=== PATIENT | female | born 1940 | race Hispanic/Latino ===

== ENCOUNTER → 2018-03-24 | Outpatient (CLI) | payer MEDICARE | END | disposition home or self-care (01) | LOC: SHCH 14:11 | PROVIDERS: ATTEND Internal Medicine Cardiovascular Disease | DX: G45.9 Transient cerebral ischemic attack, unspecified (principal) | CPT/HCPCS: 93880 ==

== ENCOUNTER 2018-05-01 16:12 | Observation (INO) | payer MEDICARE ==
[~2018-05-01] VITALS: Ht 167.6 cm; Wt 90.7 kg
[2018-05-01 16:41] LABS: BASOPHILS % (AUTO) 0.9 % (0.0-5.0); EOSINOPHILS % (AUTO) 3.3 % (0.0-8.0); LYMPHOCYTES % (AUTO) 29.5 % (21.0-51.0); MEAN CORPUSCULAR HEMOGLOBIN 28.8 pg (27.0-33.0); MEAN CORPUSCULAR HGB CONC 33.1 g/dL (32.0-36.0); MONOCYTES % (AUTO) 9.9 % (3.0-13.0); NEUTROPHILS % (AUTO) 56.4 % (40.0-77.0); NUCLEATED RED BLOOD CELLS 0.1 % (0.0-0.19); PLATELET COUNT (AUTO) 204 K/uL (130-400); RED BLOOD CELL COUNT(AUTO) 4.14 MIL/uL (4.00-5.50); RED CELL DISTRIBUTION WIDTH 14.2 % (11.0-15.5)
[2018-05-01 17:04] LABS: CREATININE 0.8 mg/dL (0.5-1.5)
[2018-05-01 17:08] LABS: ALBUMIN 3.6 g/dL (3.5-5.0); BILIRUBIN,TOTAL 0.3 mg/dL (0.2-1.0)
[2018-05-01 17:17] LABS: CREATINE KINASE, TOTAL 323 U/L (21-232); MYOGLOBIN 112 ng/mL (10-92); TROPONIN I < 0.04 ng/mL (0.00-0.06)
[2018-05-01 18:05] LABS: APPEARANCE,URINE Clear (CLEAR); BILIRUBIN,URINE Negative (NEGATIVE); COLOR,URINE Yellow (YELLOW); GLUCOSE, URINE (UA) Negative (NEGATIVE); KETONES,URINE Negative (NEGATIVE); LEUKOCYTE ESTERASE ,URINE Trace (NEGATIVE); NITRATE,URINE Negative (NEGATIVE); OCCULT BLOOD,URINE Negative (NEGATIVE); PH,URINE 5.5 (5.0-8.0); PROTEIN,URINE Negative (NEGATIVE); UROBILINOGEN,URINE 0.2 mg/dL (0.2-1.0)
[2018-05-01 18:16] LABS: BACTERIA,URINE Rare /HPF (None Seen); RBC,URINE None Seen /HPF (0-1); SQUAMOUS EPITHELIAL CELL,UR None Seen /HPF (0-2); WBC,URINE 0-1 /HPF (0-1)
[2018-05-01] MEDS ORDERED: ACETAMINOPHEN 325 MG TAB PO PRN (18:45)
[2018-05-01] MEDS ORDERED: ONDANSETRON HCL 4 MG/2 ML VIAL IV PRN (18:45)
[2018-05-01] MEDS ORDERED: MORPHINE SULFATE 2 MG/ML 1ML SYG IV PRN (18:45)
[2018-05-01 23:10] VITALS: BP 139/82
[2018-05-01] MEDS: FAMOTIDINE/PF 20 MG/2 ML VIAL IV SCH (23:19)
--- NOTE | 2018-05-01 23:20 | NUR ---
ADMITTED TO ROOM [address] OF [address] Keane FOR C/O OF PALPITATIONS.NO SOB OR CHEST PAIN NOTED.S/L TO RT WRIST PATENT AND INTACT.NO REDNESS,SWELLING OR PAIN NOTED.ROOM AIR.UP TO BATHROOM TO VOID X ONE.INSTRUCTED ON PLAN OF CARE AND RESETTLED FOLLOWING INITIAL ASSESSMENT.V/S STABLE.TELEMETRY APPLIED.N/S
[2018-05-01] MEDS: ENOXAPARIN SODIUM 30 MG/0.3 ML SQ SCH (23:25)
[2018-05-02] MEDS ORDERED: LISI-617 PO (00:32)
[2018-05-02] MEDS ORDERED: WARF7.5T23 PO (00:32)
[2018-05-02] MEDS ORDERED: CALC-190 PO (00:32)
[2018-05-02] MEDS ORDERED: SOTA80TA PO (00:32)
[2018-05-02] MEDS ORDERED: SIMV40TA59 PO (00:32)
[2018-05-02] MEDS ORDERED: AEC81 PO (00:32)
[2018-05-02] MEDS ORDERED: OXYB5TAB10 PO (00:32)
[2018-05-02] MEDS ORDERED: WARF5TAB76 PO (00:32)
[2018-05-02 03:50] VITALS: BP 126/73
[2018-05-02 04:40] LABS: EOSINOPHILS % (AUTO) 5.1 % (0.0-8.0); HEMATOCRIT 34.9 % (36-48); LYMPHOCYTES % (AUTO) 39.6 % (21.0-51.0); MEAN CORPUSCULAR HEMOGLOBIN 28.7 pg (27.0-33.0); MEAN CORPUSCULAR HGB CONC 32.8 g/dL (32.0-36.0); MEAN CORPUSCULAR VOLUME 87.5 fL (79-99); NEUTROPHILS % (AUTO) 42.3 % (40.0-77.0); NUCLEATED RED BLOOD CELLS 0.1 % (0.0-0.19); PLATELET COUNT (AUTO) 176 K/uL (130-400); RED BLOOD CELL COUNT(AUTO) 3.99 MIL/uL (4.00-5.50); RED CELL DISTRIBUTION WIDTH 14.3 % (11.0-15.5); WHITE BLOOD COUNT (AUTO) 3.3 K/uL (4.8-10.8)
[2018-05-02 05:07] LABS: ALBUMIN 3.2 g/dL (3.5-5.0); BILIRUBIN,TOTAL 0.3 mg/dL (0.2-1.0); CREATININE 0.7 mg/dL (0.5-1.5); THYROID STIMULATING HORMONE 5.09 uIU/mL (0.36-3.74); TOTAL PROTEIN, SERUM 6.3 g/dL (6.0-8.3)
[2018-05-02 07:56] VITALS: BP 140/77
--- NOTE | 2018-05-02 08:23 | NUR ---
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 CARLOS CAPPS REGARDING CONSULT. AWAITING CALLBACK.
[2018-05-02] MEDS: FAMOTIDINE/PF 20 MG/2 ML VIAL IV SCH (09:47)
[2018-05-02] MEDS: ENOXAPARIN SODIUM 30 MG/0.3 ML SQ SCH (09:47)
[2018-05-02 11:29] VITALS: BP 142/87
--- NOTE | 2018-05-02 11:30 | NUR ---
REPAGED DR. Raquel HO NO CALLBACK AT THIS TIME. REPAGED DR. Raquel HO. AWAITING CALLBACK.
== END 2018-05-02 16:30 | disposition home or self-care (01) ==
LOC: EDH 16:12 → EDHIP 18:20 → 4BH 22:28
PROVIDERS: ADMIT Hospitalist; ATTEND Hospitalist
DX: R00.2 Palpitations (principal); E78.5 Hyperlipidemia, unspecified; I10 Essential (primary) hypertension; I48.91 Unspecified atrial fibrillation; Z90.710 Acquired absence of both cervix and uterus
CPT/HCPCS: 36415 ×2; 71045; 80053 ×2; 81001; 82550; 83874; 84443; 84484 ×2; 85025 ×2; 93005; 96372; 96374; 96376; 99284; G0378 ×22; J1650; J3490 ×2

== ENCOUNTER → 2018-06-13 | Outpatient (CLI) | payer MEDICARE ==
[~2018-06-13] MED LIST: AEC81 PO; CALC-190 PO; LISI-617 PO; OXYB5TAB10 PO; SIMV40TA59 PO; SOTA80TA PO; WARF5TAB76 PO; WARF7.5T23 PO
== END | disposition home or self-care (01) ==
LOC: SHCH 11:58
PROVIDERS: ATTEND Internal Medicine Cardiovascular Disease
DX: I48.0 Paroxysmal atrial fibrillation (principal)
CPT/HCPCS: 93306

== ENCOUNTER → 2022-06-22 | Outpatient (CLI) | payer MEDICARE ==
[~2022-06-22] MED LIST changes: -LISI-617 PO; +LISI5TAB21 PO; -OXYB5TAB10 PO; +OXYB5TAB15 PO; +WARF5TAB PO; -WARF5TAB76 PO
== END | disposition home or self-care (01) ==
LOC: RAH 10:20
PROVIDERS: ATTEND Internal Medicine
DX: R10.9 Unspecified abdominal pain (principal); Z90.49 Acquired absence of other specified parts of digestive tract
CPT/HCPCS: 76700